=== PATIENT | male | born 1970 | race Two or more races ===

== ENCOUNTER 2020-03-07 03:48 | Emergency (ER) | payer OTHER ==
[~2020-03-07] VITALS: Ht 175.3 cm; Wt 107.0 kg
[2020-03-07] MEDS ORDERED: PENICILLIN V P500 MG PO (04:05)
== END 2020-03-07 04:16 | disposition home or self-care (01) ==
LOC: ED 03:48
DX: K02.9 Dental caries, unspecified (principal)
CPT/HCPCS: 99282